=== PATIENT | female | born 1990 | race Caucasian/White ===

== ENCOUNTER 2025-02-14 08:27 | Emergency (ER) | payer OTHER ==
[~2025-02-14] VITALS: Ht 170.2 cm; Wt 75.0 kg
[2025-02-14 08:30] VITALS: O2SAT 100
[2025-02-14 08:45] VITALS: TEMP 36.9
[2025-02-14] MEDS: LACTATED RINGERS 1,000 ML IV SCH (09:00)
[2025-02-14 09:12] LABS: BASOPHILS % 0.4 % (0.0-2.0); EOSINOPHILS % 0.0 % (0.0-5.0); HEMATOCRIT. 41.5 % (36.0-48.0); HEMOGLOBIN. 13.8 g/dL (12.0-16.0); LYMPHOCYTES % 15.7 % (20.0-50.0); MEAN PLATELET VOLUME 8.5 fl (7.4-10.4); MONOCYTES % 6.2 % (2.0-8.0); NEUTROPHILS % 77.7 % (40.0-76.0); PLATELET 347 x1000/uL (130-400); RED BLOOD CELL COUNT 4.76 mill/uL (4.2-5.4); RED CELL DISTRIBUTION WIDTH 13.6 % (11.6-14.6)
[2025-02-14 09:26] LABS: CREATININE 0.8 mg/dL (0.6-1.0); UREA NITROGEN BLOOD 8 mg/dL (9-23)
[2025-02-14] MEDS: DIAZEPAM 5 MG TABLET PO ONE (09:26)
[2025-02-14 09:27] LABS: HCG SCREEN NEGATIVE
[2025-02-14 09:28] LABS: ASPARTATE AMINOTRANSFERASE 27 IU/L (<34); BILIRUBIN TOTAL 1.1 mg/dL (0.1-1.0); PROTEIN TOTAL 7.4 g/dL (6.0-8.3)
[2025-02-14 10:53] VITALS: BP 126/89; PULSE 77; RESP 18; O2SAT 100
[2025-02-14 11:29] LABS: BG BASE EXCESS -0.4 mmol/L (-2.0-3.0); BG CARBOXYHEMOGLOBIN 0.3 % (0.5-1.5); BG DEOXYHEMOGLOBIN 1.4 % (0.0-5.0); BG FRACTION INSPIRED OXYGEN 21; BG HCO3 ACT 17.6 mmol/L (21.0-28.0); BG METHEMOGLOBIN 0.3 % (0.5-1.5); BG OXYGEN SATURATION 98.6 % (94.0-98.0); BG OXYHEMOGLOBIN 98.0 % (94.0-98.0); BG PCO2 16.7 mmHg (32.0-45.0); BG PH 7.640 (7.350-7.450); BG PO2 130.2 mmHg (83.0-108.0); BG SAMPLE SITE RIGHT RADIAL; BG TOTAL HEMOGLOBIN 14.1 g/dL (12.0-16.0); BG VENT MODE ROOM AIR
== END 2025-02-14 11:07 | disposition home or self-care (01) ==
LOC: ER 08:27
DX: R06.02 Shortness of breath (principal); F41.9 Anxiety disorder, unspecified; F19.90 Other psychoactive substance use, unspecified, uncomplicated
CPT/HCPCS: 80053; 82550; 84703; 85025; 36415; 71045; 82805; 82375; 93005; 96360; 99291; 36600; J7120; Z7610